=== PATIENT | male | born 1980 | race Caucasian/White ===

== ENCOUNTER 2016-09-10 11:19 | Emergency (ER) | payer OTHER ==
[2016-09-10 11:26] VITALS: BP 106/85; PULSE 95; TEMP 98.5; BMI 26.6
[2016-09-10] MEDS ORDERED: KETOROLAC TROMETHAMINE 60 MG/2 ML VIAL IM ONE (11:53)
--- NOTE | 2016-09-10 11:53 | PDOC ---
History of Present Illness - General Chief Complaint: Injury Stated Complaint: INJURY Time Seen by Provider: 09/10/16 11:39 History Source: Patient Exam Limitations: No Limitations - History of Present Illness Initial Comments: 09/10/16 11:57 My chief complaint: right wrist pain History of present illness: Patient is a 35-year-old male with a history of renal calculi and bulging disks of L5-S1 here today with reporting having a sharp pain in his right medial wrist proximal to the fourth metacarpal joint at the wrist that started last night as a sharp pain today pain is throbbing and is 8 however with certain movements with rotation of the wrist or flexion pain is sharp. Patient has slight tingling to his fifth right finger. 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 Patient did not work yesterday. Occurred: reports: yesterday Severity: reports: severe (right wrist ) Upper Extremity Pain Location: right: wrist (medial wrist, proximal to 4 th mcp jt ) Method of Injury: reports: unknown Modifying Factors: improves with: None Extremity Pain Location - Extremity Pain Location Extremity Pain Locations: right: other (medial wrist proximal to 4th mcp jt ) Past History - Past Medical History Allergies/Adverse Reactions: Allergies Allergy/AdvReac Type Severity Reaction Status Date / Time peanut Allergy Severe Verified 09/10/16 11:22 No Known Drug Allergies Allergy Mild Verified 09/10/16 11:22 BEETS Allergy Uncoded 09/10/16 11:22 CANTELOPE Allergy Uncoded 09/10/16 11:22 HONEY DEW Allergy Uncoded 09/10/16 11:22 WATERMELON Allergy Uncoded 09/10/16 11:22 Home Medications: Ambulatory Orders Oxycodone HCl/Acetaminophen [Percocet 5-325 mg Tablet] 1 tab PO Q8H PRN #6 tablet MDD 3 09/10/16 GI Disorders: Yes (hx kidney stones) - Surgical History Abdominal Surgery: Yes (HERNIA REPAIR AR 4 MONTHS OF AGE) - Immunization History Immunization Up to Date: Yes - Psycho/Social/Smoking Cessation Hx Anxiety: No Suicidal Ideation: No Smoking Status: Yes Smoking History: Current every day smoker Have you smoked in the past 12 months: Yes Number of Cigarettes Smoked Daily: 20 Information on smoking cessation initiated: No 'Breaking Loose' booklet given: 06/05/12 Hx Alcohol Use: No Drug/Substance Use Hx: No Substance Use Type: Marijuana Hx Substance Use Treatment: No Review of Systems - Review of Systems Able to Perform ROS?: Yes Constitutional: No: Symptoms Reported HEENTM: No: Symptoms Reported Respiratory: No: Symptoms reported Cardiac (ROS): No: Symptoms Reported ABD/GI: No: Symptoms Reported : No: Symptoms Reported Musculoskeletal: Yes: Joint Pain (right wrist medial proximal to 4th mcp jt ). No: Joint Swelling Integumentary: No: Symptoms Reported Neurological: Yes: Tingling (minimal rt. 5th finger ) *Physical Exam - Vital Signs Last Vital Signs Temp Pulse Resp BP Pulse Ox 98.5 F 95 H 15 106/85 97 09/10/16 11:22 09/10/16 11:22 09/10/16 11:22 09/10/16 11:22 09/10/16 11:22 - Physical Exam General Appearance: Yes: Appropriately Dressed Respiratory/Chest: positive: Lungs Clear, Normal Breath Sounds. negative: Chest Tender, Respiratory Distress Cardiovascular: positive: Regular Rhythm, Regular Rate, S1, S2 Comments:: 09/10/16 13:01 radial pulse 4 + rt. Extremity: positive: Normal Capillary Refill, Normal Inspection, Normal Range of Motion, Tender (rt. medial wrist proximal 4 th mcp jt ) Integumentary: positive: Normal Color Neurologic: positive: Alert, Normal Response, Respond to painful stimul, Responsive, Other (negative tinel rt. + phalen rt. ). negative: Numbness, Sensory Deficit Procedures - Consent Consent obtained: From Patient - Splinting Splint Location: Right: Wrist Pre-Proc Neuro Vasc Exam: normal Complications: No Post splint xray: No Medical Decision Making - Medical Decision Making 09/10/16 11:59 Patient is a 35-year-old male with a history of renal calculi and bulging disks of L5-S1 here today with reporting having a sharp pain in his right medial wrist proximal to the fourth metacarpal joint at the wrist that started last night as a sharp pain today pain is throbbing and is 8 however with certain movements with rotation of the wrist or flexion pain is sharp and is a 10+. . Patient has slight tingling to his fifth right finger. 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 Patient did not work yesterday. Rt. wrist pain R/O chris injury right wrist rt. carpel tunnel syndrome PLAN: toradol 60 mg IM now wrist immoblizer rt. Naprosyn 500 mg bid prn pain # 14 tabs percocet 5mg/325 mg po every 8 hrs prn severe pain # 8 ortho consult 09/10/16 13:06 *DC/Admit/Observation/Transfer Diagnosis at time of Disposition: Wrist pain, right - Discharge Dispostion Disposition: HOME Condition at time of disposition: Stable - Prescriptions Prescriptions: Oxycodone HCl/Acetaminophen [Percocet 5-325 mg Tablet] 1 tab PO Q8H PRN #6 tablet MDD 3 PRN Reason: Severe Pain - Referrals Referrals: Doc Stanley MD [Primary Care Provider] - Tavares Kelley MD [Staff Physician] - - Patient Instructions Additional Instructions: Follow-up with orthopedist as soon as possible for further evaluation Wear wrist splint during the day may take off at night Avoid carrying anything heavy and your right wrist that might cause it to bend Take ibuprofen as directed by electronic sensing equipment assembler Return to emergency room if symptoms worsen this of fingers discoloration of hands or arm coolness of fingers of hand or right arm Patient voiced understanding of discharge instructions and all questions were answered
[2016-09-10] MEDS ORDERED: KETOROLAC TROMETHAMINE 60 MG/2 ML VIAL ONE (11:54)
== END 2016-09-10 12:49 | disposition home or self-care (01) ==
LOC: JERFT 11:19
PROC: 2W3EX1Z Immobilization of Right Hand using Splint (ICD-10-PCS; principal; 2016-09-10)
PROC: 3E0233Z Introduction of Anti-inflammatory into Muscle, Percutaneous Approach (ICD-10-PCS; 2016-09-10)
DX: M25.531 Pain in right wrist (principal); F17.210 Nicotine dependence, cigarettes, uncomplicated; Z87.442 Personal history of urinary calculi
CPT/HCPCS: 29125; 73110-TC-RT; 73130-TC-RT; 96372; 99281-25

== ENCOUNTER 2016-10-19 23:04 | Emergency (ER) | payer OTHER ==
[2016-10-19 23:12] VITALS: BP 135/78; PULSE 93; TEMP 97.7; BMI 32.5
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
[2016-10-19] MEDS ORDERED: KETOROLAC TROMETHAMINE 30 MG/1 ML VIAL IVPUSH ONE (23:55)
[2016-10-19] MEDS ORDERED: SODIUM CHLORIDE 1,000 ML IV STA (23:55)
[2016-10-19] MEDS ORDERED: ONDANSETRON 4 MG/2 ML VIAL IVPUSH ONE (23:55)
[2016-10-20] MEDS ORDERED: KETOROLAC TROMETHAMINE 30 MG/1 ML VIAL ONE (00:01)
[2016-10-20] MEDS ORDERED: ONDANSETRON 4 MG/2 ML VIAL ONE (00:02)
[2016-10-20 00:24] LABS: BASOPHIL 1.3 % (0-2.0); EOSINOPHIL 2.7 % (0-4.5); MCH 29.9 pg (25.7-33.7); MCHC 33.8 g/dl (32.0-35.9); MEAN CELL VOLUME 88.6 fl (80-96); MEAN PLT VOLUME 7.4 fl (7.5-11.1); NEUTROPHILS 70.1 % (42.8-82.8); PLATELET COUNT 271 K/MM3 (134-434); RDW 13.4 % (11.9-15.9); WHITE BLOOD COUNT 13.6 K/mm3 (4.0-10.0)
[2016-10-20 00:43] LABS: INR 1.03 (0.82-1.09); PROTHROMBIN TIME (PATIENT) 11.3 SEC (9.98-11.88)
[2016-10-20 00:53] LABS: ALBUMIN 4.2 g/dl (3.4-5.0); ANION GAP 10 (8-16); BILIRUBIN,TOTAL 0.4 mg/dL (0.2-1.0); CALCIUM 9.2 mg/dL (8.5-10.1); CO2 26 mmol/L (21-32); CREATININE 1.2 mg/dL (0.7-1.3); GLUCOSE,RANDOM 90 mg/dL (74-106); SGOT/AST 32 U/L (15-37); SGPT/ALT 42 U/L (12-78); TOT PROT 7.2 g/dl (6.4-8.2)
[2016-10-20 00:55] LABS: ALK PHOS 64 U/L (45-117); CPK 298 IU/L (39-308); TROPONIN I < 0.02 ng/ml (0.00-0.05)
[2016-10-20] MEDS ORDERED: LIDOCAINE HCL 2% (50ML VIAL) INF ONE (01:01)
[2016-10-20] MEDS ORDERED: LIDOCAINE HCL 1%, 10 MG/ML (20ML VIAL) ONE (01:13)
[2016-10-20] MEDS ORDERED: KETOROLAC TROMETHAMINE 30 MG/1 ML VIAL IVPUSH ONE (01:47)
[2016-10-20 02:20] LABS: URINE APPEARANCE CLEAR; URINE BILIRUBIN NEGATIVE (NEGATIVE); URINE BLOOD 1+ (NEGATIVE); URINE COLOR LTYELLOW; URINE GLUCOSE (UA) NEGATIVE (NEGATIVE); URINE KETONE NEGATIVE (NEGATIVE); URINE LEUK ESTERASE NEGATIVE (NEGATIVE); URINE NITRITE NEGATIVE (NEGATIVE); URINE UROBILINOGEN NEGATIVE mg/dL (0.2-1.0)
[2016-10-20 02:21] LABS: URINE PROTEIN 1+ (NEGATIVE)
[2016-10-20 02:24] LABS: URINE HYALINE CAST 11 /lpf; URINE MUCUS RARE; URINE RBC 8 /hpf (0-3); URINE WBC 4 /hpf (3-5)
[2016-10-20 02:30] LABS: URINE MARIJUANA THC POSITIVE ng/ml (CUTOFF=50)
== END 2016-10-20 02:46 | disposition home or self-care (01) ==
LOC: JER 23:04 → SUPCPDRO 23:04 → JER 10-20 02:46
PROC: 3E0333Z Introduction of Anti-inflammatory into Peripheral Vein, Percutaneous Approach (ICD-10-PCS; principal; 2016-10-19)
PROC: 3E033GC Introduction of Other Therapeutic Substance into Peripheral Vein, Percutaneous Approach (ICD-10-PCS; 2016-10-19)
PROC: 0HQ1XZZ Repair Face Skin, External Approach (ICD-10-PCS; 2016-10-19)
DX: S01.81XA Laceration without foreign body of other part of head, initial encounter (principal); S51.011A Laceration without foreign body of right elbow, initial encounter; S20.211A Contusion of right front wall of thorax, initial encounter; S80.811A Abrasion, right lower leg, initial encounter; Y04.2XXA Assault by strike against or bumped into by another person, initial encounter; Y93.89 Activity, other specified; Y92.414 Local residential or business street as the place of occurrence of the external cause; Y99.8 Other external cause status; Y07.59 Other non-family member, perpetrator of maltreatment and neglect
CPT/HCPCS: 36415; 70450-TC; 71250-TC; 72125-TC; 73070-TC-LT; 73562-TC-LT; 73562-TC-RT; 74176-TC; 80053; 80307; 81003; 81015; 82553; 84484; 85025; 85610; 99283-25

== ENCOUNTER 2023-08-02 20:29 | Emergency (ER) | payer OTHER ==
[2023-08-02 20:54] VITALS: BP 149/90; PULSE 91; RESP 18; TEMP 98; BMI 26.6
[2023-08-02] MEDS: ACETAMINOPHEN 325 MG TABLET (FP) PO ONE (22:03)
[2023-08-02] MEDS ORDERED: ACETAMINOPHEN 325 MG TABLET (FP) ONE (22:04)
== END 2023-08-02 23:09 | disposition home or self-care (01) ==
LOC: JERFT 20:29
DX: M20.012 Mallet finger of left finger(s) (principal)
CPT/HCPCS: 73130-TC-LT-FY; 99283-25

== ENCOUNTER 2024-07-29 19:59 | Emergency (ER) | payer OTHER ==
[2024-07-29 20:04] VITALS: TEMP 98.9; BMI 25.1
[2024-07-29] MEDS ORDERED: FAMOTIDINE 20 MG/50 ML IVPB 20 MG/50 ML MG IVPB ONE (20:16)
[2024-07-29] MEDS ORDERED: ONDANSETRON 4 MG/2 ML VIAL ONE (20:16)
[2024-07-29] MEDS ORDERED: morphine SULFATE 4 MG/ML VIAL ONE (20:16)
[2024-07-29] MEDS ORDERED: HALOPERIDOL LACTATE 5 MG/ML ONE (20:26)
[2024-07-29] MEDS: morphine CARPU-JECT 4 MG/1 ML DISP.SYRIN IVPUSH ONE (20:30)
[2024-07-29] MEDS: ONDANSETRON 4 MG/2 ML VIAL IVPUSH ONE (20:30)
[2024-07-29] MEDS: HALOPERIDOL LACTATE 5 MG/ML IM ONE (20:33)
[2024-07-29] MEDS: FAMOTIDINE 20 MG/50 ML IVPB 20 MG/50 ML MG IVPB ONE (20:37)
[2024-07-29 20:38] LABS: ABSOLUTE IMMATURE GRANULOCYTES 0.06 x10^3/uL (0.0-0.031); BASOPHILS # 0.09 x10^3/uL (0.01-0.08); EOSINOPHIL % 0.3 % (0.8-7.0); EOSINOPHILS # 0.04 x10^3/uL (0.04-0.54); HEMATOCRIT 42.5 % (40.1-51.0); HEMOGLOBIN 14.3 g/dL (13.7-17.5); MCHC 33.6 g/dl (32.3-36.5); MEAN CELL VOLUME 83.7 fl (79.0-92.2); MEAN PLT VOLUME 9.1 fl (9.4-12.4); MONOCYTE # 0.89 x10^3/uL (0.30-0.82); MONOCYTE % 5.8 % (5.3-12.2); PLATELET COUNT 335 x10^3/uL (163-337); RDW 13.4 % (12.1-15.9)
[2024-07-29] MEDS: SODIUM CHLORIDE 0.9% 500 ML INFUS.BAG IV ONE (20:49)
[2024-07-29 20:59] LABS: POTASSIUM 3.2 mmol/L (3.5-5.1)
[2024-07-29 21:01] LABS: CALCIUM 9.6 mg/dL (8.5-10.1)
[2024-07-29 21:02] LABS: ALBUMIN 4.1 g/dl (3.4-5.0); BLOOD UREA NITROGEN 11.6 mg/dL (7-18)
[2024-07-29 21:06] LABS: BILIRUBIN,TOTAL 0.6 mg/dL (0.2-1); TOT PROT 7.4 g/dl (6.4-8.2)
[2024-07-29 22:02] LABS: HCV DIAGNOSTIC IN-HOUSE W/RFLX NON-REACTIVE (NONREACTIVE); HIV INTERPRETATION NEGATIVE (NEGATIVE)
[2024-07-29] MEDS ORDERED: POTASSIUM CHLORIDE ORAL LIQUID 20 MEQ/15 ML ONE (22:23)
[2024-07-29] MEDS: POTASSIUM CHLORIDE TABS 20 MEQ TABLET.ER (FP) PO ONE (22:26)
[2024-07-29] MEDS: KCL 10 MEQ IVPB 10 MEQ/100 ML INFUS.BAG IVPB SCH (22:26)
[2024-07-30 00:18] VITALS: BP 158/89; PULSE 77; RESP 18
== END 2024-07-30 00:39 | disposition home or self-care (01) ==
LOC: JER 19:59
PROC: 3E033GC Introduction of Other Therapeutic Substance into Peripheral Vein, Percutaneous Approach (ICD-10-PCS; principal; 2024-07-29)
PROC: 3E033NZ Introduction of Analgesics, Hypnotics, Sedatives into Peripheral Vein, Percutaneous Approach (ICD-10-PCS; 2024-07-29)
PROC: 3E033GC Introduction of Other Therapeutic Substance into Peripheral Vein, Percutaneous Approach (ICD-10-PCS; 2024-07-29)
PROC: 3E023GC Introduction of Other Therapeutic Substance into Muscle, Percutaneous Approach (ICD-10-PCS; 2024-07-29)
DX: F12.988 Cannabis use, unspecified with other cannabis-induced disorder (principal); R11.2 Nausea with vomiting, unspecified; R10.13 Epigastric pain
CPT/HCPCS: 36415; 76705-TC; 80053; 80307; 83690; 84484; 85025; 86803; 87389; 93005; 93010; 96365; 96372; 96375; 99285-25